=== PATIENT | male | born 1955 | race Caucasian/White ===

== ENCOUNTER 2019-04-11 13:38 | Emergency (ER) | payer MEDICARE ==
[~2019-04-11] VITALS: Ht 182.9 cm; Wt 86.2 kg
[2019-04-11] MEDS ORDERED: SUPER THERAVIT1 EACH PO (14:49)
[2019-04-11] MEDS ORDERED: NORCO 5-325 TA1 EAC1 PO (16:20)
[2019-04-11 16:37] VITALS: BP 105/70
== END 2019-04-11 16:38 | disposition home or self-care (01) ==
LOC: M.ERS 13:38
DX: S52.591A Other fractures of lower end of right radius, initial encounter for closed fracture (principal); Z88.1 Allergy status to other antibiotic agents; W01.0XXA Fall on same level from slipping, tripping and stumbling without subsequent striking against object, initial encounter; Y93.89 Activity, other specified; Y92.89 Other specified places as the place of occurrence of the external cause; Y99.8 Other external cause status